=== PATIENT | male | born 1960 | race Caucasian/White ===

== ENCOUNTER 2021-09-05 13:19 | Outpatient (CLI) | payer OTHER | END 2021-09-05 13:20 | disposition home or self-care (01) | LOC: ULT 13:19 | PROVIDERS: ATTEND Urology | DX: N50.89 Other specified disorders of the male genital organs (principal); N43.3 Hydrocele, unspecified; N50.3 Cyst of epididymis | CPT/HCPCS: 76870; 93976 ==

== ENCOUNTER 2025-02-05 15:05 | Outpatient (CLI) | payer MEDICARE | END 2025-02-05 15:06 | disposition home or self-care (01) | LOC: BICRAD 15:05 | PROVIDERS: ATTEND Urology | DX: N20.0 Calculus of kidney (principal) | CPT/HCPCS: 74018 ==